=== PATIENT | male | born 1985 | race Caucasian/White ===

== ENCOUNTER 2017-08-09 23:30 | Emergency (ER) | payer OTHER ==
[~2017-08-09] VITALS: Ht 167.6 cm; Wt 68.0 kg
[2017-08-09 23:37] VITALS: BP 134/67
== END 2017-08-10 01:15 | disposition home or self-care (01) ==
LOC: ER 23:30
DX: Z20.6 Contact with and (suspected) exposure to human immunodeficiency virus [HIV] (principal)

== ENCOUNTER 2019-02-07 11:22 | Emergency (ER) | payer OTHER ==
[~2019-02-07] VITALS: Ht 167.6 cm; Wt 68.0 kg
[2019-02-07 11:40] VITALS: BP 140/84
== END 2019-02-07 13:15 | disposition home or self-care (01) ==
LOC: ER 11:22
DX: Z20.6 Contact with and (suspected) exposure to human immunodeficiency virus [HIV] (principal)